=== PATIENT | male | born 1995 | race Hispanic/Latino ===

== ENCOUNTER 2024-11-15 14:31 | Emergency (ER) | payer SELFPAY ==
[~2024-11-15] VITALS: Ht 182.9 cm; Wt 85.7 kg
[2024-11-15 15:29] VITALS: PULSE 67; RESP 16; TEMP 98.2; O2SAT 100
== END 2024-11-15 17:21 | disposition home or self-care (01) ==
LOC: ER 15:38
DX: S00.03XA Contusion of scalp, initial encounter (principal); W21.03XA Struck by baseball, initial encounter; Y93.64 Activity, baseball; Y92.320 Baseball field as the place of occurrence of the external cause
CPT/HCPCS: 99282